=== PATIENT | female | born 1950 | race Hispanic/Latino ===

== ENCOUNTER 2020-09-04 14:17 | Observation (INO) | payer MEDICARE, OTHER ==
[~2020-09-04] VITALS: Ht 157.5 cm; Wt 71.0 kg
[~2020-09-04 14:17] MED LIST: CITA-107 PO; INSU100I26 SQ; MECL-160 PO; METF-444 PO; PRAV40TA3 PO; RANI150T7 PO; TOLT2TAB20 PO
[2020-09-04 15:02] LABS: BASOPHILS % (AUTO) 0.7 % (0.0-5.0); EOSINOPHILS % (AUTO) 2.3 % (0.0-8.0); HEMATOCRIT 38.6 % (36-48); LYMPHOCYTES % (AUTO) 28.3 % (21.0-51.0); MEAN CORPUSCULAR HEMOGLOBIN 28.9 pg (27.0-33.0); MEAN CORPUSCULAR HGB CONC 32.4 g/dL (32.0-36.0); MEAN CORPUSCULAR VOLUME 89.4 fL (79-99); MONOCYTES % (AUTO) 6.5 % (3.0-13.0); NEUTROPHILS % (AUTO) 61.2 % (40.0-77.0); PLATELET COUNT (AUTO) 263 K/uL (130-400); RED BLOOD CELL COUNT(AUTO) 4.32 MIL/uL (4.00-5.50); RED CELL DISTRIBUTION WIDTH 12.7 % (11.0-15.5); WHITE BLOOD COUNT (AUTO) 11.5 K/uL (4.8-10.8)
[2020-09-04 15:16] LABS: POTASSIUM 3.9 mmol/L (3.5-5.1)
[2020-09-04 15:21] LABS: BILIRUBIN,TOTAL 0.2 mg/dL (0.2-1.0); TOTAL PROTEIN, SERUM 7.9 g/dL (6.0-8.3)
[2020-09-04 15:22] LABS: INR 1.04 (0.85-1.15); PROTHROMBIN TIME 11.3 SEC (9.6-11.6)
[2020-09-04 15:24] LABS: PARTIAL THROMBOPLASTIN TIME 23.3 SEC (26.3-35.5)
[2020-09-04 15:26] LABS: APPEARANCE,URINE Clear (CLEAR); BILIRUBIN,URINE Negative (NEGATIVE); COLOR,URINE Yellow (YELLOW); GLUCOSE, URINE (UA) >=1000 mg/dL (NEGATIVE); KETONES,URINE Negative (NEGATIVE); LEUKOCYTE ESTERASE ,URINE Negative (NEGATIVE); NITRATE,URINE Negative (NEGATIVE); OCCULT BLOOD,URINE Negative (NEGATIVE); PROTEIN,URINE Negative (NEGATIVE)
[2020-09-04 15:52] LABS: BACTERIA,URINE Rare /HPF (None Seen); MUCUS,URINE Few LPF (None Seen); RBC,URINE 0-1 /HPF (0-1); SQUAMOUS EPITHELIAL CELL,UR Rare /HPF (0-2)
[2020-09-04] MEDS ORDERED: MORPHINE 2 MG SYG ONE (17:54)
[2020-09-04] MEDS ORDERED: CEFTRIAXONE 1G VIAL IV SCH (18:15)
[2020-09-04] MEDS ORDERED: MORPHINE 2 MG SYG IV PRN (18:15)
[2020-09-04 18:44] LABS: THYROID STIMULATING HORMONE 1.52 uIU/mL (0.36-3.74)
[2020-09-04 20:00] VITALS: BP 127/72
[2020-09-04] MEDS: 0.9%NACL 1000ML 1,000 ML IV SCH (20:38)
[2020-09-04] MEDS ORDERED: FAMOTIDINE 20MG VIAL IV SCH (21:00)
[2020-09-04] MEDS: INSULIN HUMULIN R 100 UNIT/ML 3ML SQ SCH (21:00)
[2020-09-04] MEDS ORDERED: KETOROLAC 15MG/ML VIAL (15MG/ML) IV PRN (21:15)
[2020-09-04 21:21] LABS: HEMOGLOBIN A1C 8.8 % (4.0-6.0)
[2020-09-04] MEDS: METOPROLOL TARTRATE 25 MG TAB PO SCH (21:35)
[2020-09-04 23:44] VITALS: BP 116/66
[2020-09-05 04:00] VITALS: BP 123/68
[2020-09-05 04:04] LABS: BASOPHILS % (AUTO) 0.7 % (0.0-5.0); EOSINOPHILS % (AUTO) 2.3 % (0.0-8.0); HEMATOCRIT 35.3 % (36-48); LYMPHOCYTES % (AUTO) 20.5 % (21.0-51.0); MEAN CORPUSCULAR HEMOGLOBIN 28.4 pg (27.0-33.0); MEAN CORPUSCULAR VOLUME 88.7 fL (79-99); MONOCYTES % (AUTO) 7.7 % (3.0-13.0); NEUTROPHILS % (AUTO) 68.3 % (40.0-77.0); PLATELET COUNT (AUTO) 254 K/uL (130-400); RED BLOOD CELL COUNT(AUTO) 3.98 MIL/uL (4.00-5.50); RED CELL DISTRIBUTION WIDTH 12.9 % (11.0-15.5)
[2020-09-05 04:23] LABS: ALBUMIN 3.6 g/dL (3.5-5.0); BILIRUBIN,TOTAL 0.3 mg/dL (0.2-1.0); CREATININE 0.8 mg/dL (0.5-1.5); POTASSIUM 4.2 mmol/L (3.5-5.1); TOTAL PROTEIN, SERUM 7.2 g/dL (6.0-8.3)
[2020-09-05] MEDS: 0.9%NACL 1000ML 1,000 ML IV SCH (04:40)
[2020-09-05] MEDS: INSULIN HUMULIN R 100 UNIT/ML 3ML SQ SCH ×2 (07:30→13:21)
[2020-09-05] MEDS ORDERED: ASPIRIN 81MG CHEW TAB ONE (08:38)
[2020-09-05] MEDS ORDERED: ENOXAPARIN SODIUM 40 MG/0.4 ML SYRINGE SQ SCH (09:00)
[2020-09-05] MEDS ORDERED: ASPIRIN 325 MG TABLET PO SCH (09:00)
[2020-09-05] MEDS: METOPROLOL TARTRATE 25 MG TAB PO SCH (09:00)
[2020-09-05 09:09] VITALS: BP 108/64
[2020-09-05] MEDS ORDERED: ACET1TAB25 PO (09:49)
[2020-09-05 13:13] VITALS: BP 95/56
[2020-09-05 14:09] VITALS: BP 109/60
[2020-09-05] MEDS ORDERED: ATORVASTATIN 20 MG TABLET PO SCH (21:00)
[2020-09-05] MEDS ORDERED: INSULIN GLARGINE 100 UNITS/ML 10 ML VIAL SQ SCH (21:00)
== END 2020-09-05 15:30 | disposition home or self-care (01) ==
LOC: EDH 14:17 → EDHIP 17:40 → INTOOBSV 17:40 → 3BH 19:37
PROVIDERS: ADMIT Internal Medicine; ATTEND Internal Medicine
DX: R07.89 Other chest pain (principal); S42.292A Other displaced fracture of upper end of left humerus, initial encounter for closed fracture; E11.65 Type 2 diabetes mellitus with hyperglycemia; I10 Essential (primary) hypertension; E78.5 Hyperlipidemia, unspecified; Z79.4 Long term (current) use of insulin; Z79.899 Other long term (current) drug therapy; W01.0XXA Fall on same level from slipping, tripping and stumbling without subsequent striking against object, initial encounter; Y93.89 Activity, other specified; Y92.009 Unspecified place in unspecified non-institutional (private) residence as the place of occurrence of the external cause
CPT/HCPCS: 36415 ×2; 70450; 71045; 73030; 80053 ×2; 80061; 81001; 82550; 82948 ×3; 83036; 84443; 84484 ×3; 85025 ×2; 85610; 85730; 87040 ×2; 93005 ×4; 96361 ×3; 96372; 96374; 96375 ×2; 99285; A4344; G0378 ×21; J0696; J1650; J1885; J3490